=== PATIENT | female | born 1955 | race Caucasian/White ===

== ENCOUNTER 2018-11-18 21:17 | Inpatient (IN) ==
[2018-11-18] MEDS ORDERED: SOLU-MEDROL IV ONE (21:46)
[2018-11-18] MEDS ORDERED: DUONEB (A & A) INH ONE (21:46)
[2018-11-18] MEDS ORDERED: MORPHINE IV ONE (21:46)
[2018-11-18] MEDS ORDERED: ZOFRAN IV ONE (21:46)
[2018-11-18] MEDS ORDERED: ZOVIRAX IV SCH ×2 (22:00→22:13)
[2018-11-18] MEDS ORDERED: NS IV SCH ×2 (22:00→22:13)
[2018-11-18 22:06] LABS: BASO# 0.02 X1000 (0.0-0.2); BASO% 0.2 % (0.0-0.8); EOS# 0.02 X1000 (0.0-0.7); EOS% 0.2 % (0.0-10.0); HEMATOCRIT 41.8 % (37.0-47.0); HEMOGLOBIN 13.7 g/dL (12.0-16.0); IMM GRAN# 0.02 X1000 (0.0-0.04); IMM GRAN% 0.2 % (0.0-0.5); LYMPH# 0.58 X1000 (1.2-3.4); MCHC 32.8 g/dL (33-37); MCV 97.7 FL (81-99); MONO# 0.41 X1000 (0.11-0.59); MONO% 3.5 % (1.7-9.3); MPV 8.8 FL (7.4-10.4); NEUT# 10.54 X1000 (1.4-6.5); NEUT% 90.9 % (42.2-75.2); PLT 269 X1000 (130-400); RBC 4.28 XMIL (4.2-5.4); WBC 11.59 X1000 (4.8-10.8)
[2018-11-18 22:17] LABS: AGAP 13; BUN 12 mg/dL (8-22); CALCIUM 9.2 mg/dL (8.8-10.2); CHLORIDE 92 mmol/L (98-107); COSMO 270; CREATININE 0.5 mg/dL (0.5-0.9); ESTIMATED GFR > 60; GLUCOSE 143 mg/dL (70-104); SODIUM 134 mmol/L (136-145); TCO2 29 mmol/L (25-35)
[2018-11-18 22:19] LABS: BE 7.7 mmoll (-3.0-3.0); BLOOD TYPE ARTERIAL; HCO3-(ACT) 30.7 mmoll (20.0-26.0); METHB 1.6 % (0.0-1.5); O2(CT) 18.1 mL/dL (15.0-23.0); O2HB 90.3 % (95.0-99.0); PCO2(98.6) 49 mmHg (35-45); PO2(98.6) 60 mmHg (60-100); SAMPLE BLOOD; THB 14.3 g/dL (11.5-17.4); pH(98.6) 7.44 (7.35-7.45)
[2018-11-18 22:21] LABS: ALLEN TEST NO; MODALITY CANNULA
[2018-11-18] MEDS ORDERED: ZOVIRAX ONE (22:39)
[2018-11-18] MEDS ORDERED: NS 250 ML ONE (22:41)
--- NOTE | 2018-11-18 22:45 | Diag Imaging Result Doc PS360 ---
CHEST-PORTABLE - 11/18/2018 INDICATION: copd COMPARISON: 06/17/2018 FINDINGS: There is advanced COPD. There is a mild infiltrate in the lingula at the left lung base. No pneumothorax or pleural effusion. Heart size and pulmonary vascularity is normal. IMPRESSION: COPD. Mild infiltrate at the left lung base. Electronically signed by Terrance Finch 11/18/2018 10:42 PM
[2018-11-18 22:53] LABS: INFLUENZA A NEGATIVE (NEGATIVE); INFLUENZA B NEGATIVE (NEGATIVE)
--- NOTE | 2018-11-18 23:04 | PROVIDER DOCUMENTATION ---
This chart was entered by Jasmin Arellano Scribe, acting as scribe for Jey Guerrero MD. HPI-Respiratory General - General Chief Complaint: Shortness of Breath Stated Complaint: SOB Time Seen by Provider: 11/18/18 21:43 Source: patient, family Allergies/Adverse Reactions: Patient Allergies Allergy/AdvReac Type Severity Reaction Status Date / Time amoxicillin [Amoxicillin] Allergy RASH Verified 06/15/18 17:26 Sulfa (Sulfonamide Allergy HIVES Verified 06/15/18 17:26 Antibiotics) Home Medications: Home Medication List Medication Instructions Recorded Confirmed Last Taken Type Albuterol 2.5MG/Ipratrop 0.5MG 2 puff IH DIRECTED 06/15/18 11/18/18 06/15/18 14:30 History [Duoneb (A & A)] Cyclobenzaprine [Flexeril] 5 mg PO TID PRN 06/15/18 11/18/18 Unknown History Fluoxetine HCl 20 mg PO BID 06/15/18 11/18/18 06/15/18 14:30 History Hydrocodone/Acetaminophen 1 tab PO 4XDAY PRN PRN 06/15/18 11/18/18 06/15/18 14: 30 History [Hydrocodone-Acetamin 5-325 mg] Ipratropium/Albuterol Sulfate 1 puff IH DAILY 06/15/18 11/18/18 06/15/18 14:30 History [Combivent Respimat 20-100 Mcg] Mometasone/Formoterol [Dulera 200 2 puff IH BID 06/15/18 11/18/18 06/15/18 14: 30 History Mcg/5 Mcg Inhaler] Clonazepam 1 tab PO BID PRN 06/16/18 11/18/18 Unknown History Levofloxacin [Levaquin] 500 mg PO DAILY 7 Days #7 tablet 06/17/18 11/18/18 Unknown Rx Prednisone See Taper PO DAILY #0 tab 06/17/18 11/18/18 06/15/18 14:30 Rx - History of Present Illness-Resp Nature of Presenting Problem: 63yof with history of COPD c/o cough and sob since this evening. She reports having cough and sob for the past two years, but has worsened this evening. She reports she is on 2L home oxygen. She reports Dr. Alex as her PCP. She denies fever, chills, nausea, vomiting, diarrhea, cp. Quality of Pain: reports: aching Severity in ED: reports: mild Onset/Duration: reports: this evening (worsened), other (two years) Timing: reports: still present, intermittent, constant Cough Quality/Degree: reports: moderate Episode Frequency: other (Hx COPD) Current Respiratory Medication Therapy: Initiated see nurses note Modifying Factors: improves with: nothing Associated Symptoms: reports: cough, shortness of breath. denies: chest pain/ soreness, fever/chills Similar Symptoms Previously?: No Recently seen or treated by another doctor?: No Review of Systems - Adult - REVIEW OF SYSTEMS - ADULT Constitutional: denies: chills, fever Eyes: denies: discharge, dry eyes Ears, Nose, Mouth & Throat: denies: ear discharge, ear pain Cardiovascular: denies: chest pain, palpitations Respiratory: reports: cough, shortness of breath Gastrointestinal: denies: abdominal pain, diarrhea, nausea, vomiting Genitourinary: denies: dysuria, hematuria Musculoskeletal: denies: back pain, muscle aches, muscle weakness Integumentary: reports: no symptoms reported Neurological: denies: dizziness/vertigo, headache/migraines Psychiatric: reports: no symptoms reported Endocrine: reports: no symptoms reported Hematologic/Lymphatic: reports: no symptoms reported Allergic/Immunologic: reports: no symptoms reported All Other Systems: Reviewed and Negative Past History - Adult - PAST MEDICAL HISTORY-ADULT Review of Records: reports: Old Records Reviewed, Nursing Assessment Review, Medications Reviewed Respiratory: reports: COPD Psychiatric: reports: anxiety - PRIOR SURGERIES/PROCEDURES Surgical/Procedure History: reports: hysterectomy - IMMUNIZATION STATUS Childhood Immunizations: See Nurse Assessment Flu Vaccine: See Nurse Assessment - FAMILY HISTORY Family History: reviewed, not pertinent - SOCIAL HISTORY Smoking: other (former, quit 2 years prior) Substance Use: denies Living Situation: family Physical Exam-General - PHYSICAL EXAM-ADULT Initial Vital Signs Reviewed: Yes - CONSTITUTIONAL General Appearance: alert, no apparent distress, thin - EYES Eyes: PERRL/EOMI, pink conjunctivae - NECK Neck: non-tender, supple - RESPIRATORY Respiratory: rales, wheezing (bilaterally), other (tachypneic) - CARDIOVASCULAR Cardiovascular: no JVD, no murmur, tachycardia - GASTROINTESTINAL (ABDOMEN) Abdominal Exam: non tender, soft - MUSCULOSKELETAL Extremity: normal range of motion, non-tender, normal inspection, no pedal edema - SKIN Integumentary: normal color, warm/dry, zoster-like rash (L upper face stops midline, no conjunctivitis) - NEUROLOGIC Neurologic: grossly normal, no motor/sensory deficits - PSYCHIATRIC Psych/Mental Status: normal mood/affect, normal thought content, normal thought process, oriented x 3 Progress - PLAN OF CARE/RESULTS Progress/Plan/Lab Results: Vital Signs - 8 hr 11/18/18 21:27 11/18/18 21:57 11/18/18 22:01 Temperature 98.6 F Pulse Rate 104 H 92 H 104 H Respiratory Rate 26 H 20 25 H Blood Pressure 151/104 120/78 O2 Sat by Pulse Oximetry 88 L 91 L 93 L Laboratory Results - last 24 hr 11/18/18 11/18/18 11/18/18 21:38 21:38 21:38 WBC 11.59 H RBC 4.28 Hgb 13.7 Hct 41.8 MCV 97.7 MCH 32.0 H MCHC 32.8 L RDW Std Deviation 14.0 Plt Count 269 MPV 8.8 Immature Gran % (Auto) 0.2 Neut % (Auto) 90.9 H Lymph % (Auto) 5.0 L Carroll % (Auto) 3.5 Eos % (Auto) 0.2 Baso % (Auto) 0.2 Immature Gran # (Auto) 0.02 Neut # (Auto) 10.54 H Lymph # (Auto) 0.58 L Carroll # (Auto) 0.41 Eos # (Auto) 0.02 Baso # (Auto) 0.02 Specimen Type Sample Site pH pCO2 pO2 HCO3 Base Excess Oxyhemoglobin ABG O2 Sat (Calculated) ABG O2 Saturation ABG Carboxyhemoglobin ABG Methemoglobin Freddie Test A-a O2 Difference Total Hemoglobin Lactate Liter Flow Blood Gas Modality FiO2 % Sodium 134 L Potassium 5.0 Chloride 92 L Carbon Dioxide 29 Anion Gap 13 BUN 12 Creatinine 0.5 Estimated GFR/1.73 m2 > 60 BUN/Creatinine Ratio 24 Glucose 143 H Calculated Osmolality 270 Calcium 9.2 Magnesium 2.0 Troponin T [id number]-Cvxqvuunsrl Pept 177 Influenza A (Rapid) Influenza B (Rapid) 11/18/18 11/18/18 11/18/18 21:38 21:54 22:30 WBC RBC Hgb Hct MCV MCH MCHC RDW Std Deviation Plt Count MPV Immature Gran % (Auto) Neut % (Auto) Lymph % (Auto) Carroll % (Auto) Eos % (Auto) Baso % (Auto) Immature Gran # (Auto) Neut # (Auto) Lymph # (Auto) Carroll # (Auto) Eos # (Auto) Baso # (Auto) Specimen Type ARTERIAL Sample Site L BRACHIAL pH 7.44 pCO2 49 H pO2 60 HCO3 30.7 H Base Excess 7.7 H Oxyhemoglobin 90.3 L ABG O2 Sat (Calculated) 18.1 ABG O2 Saturation 94.0 L ABG Carboxyhemoglobin 2.40 ABG Methemoglobin 1.6 H Freddie Test NO A-a O2 Difference 107.0 Total Hemoglobin 14.3 Lactate 0.80 Liter Flow 3.0 Blood Gas Modality CANNULA FiO2 % 32.0 Sodium Potassium Chloride Carbon Dioxide Anion Gap BUN Creatinine Estimated GFR/1.73 m2 BUN/Creatinine Ratio Glucose Calculated Osmolality Calcium Magnesium Troponin T 0.012 Cpq-B-Eacgrohrpoj Pept Influenza A (Rapid) NEGATIVE Influenza B (Rapid) NEGATIVE Orders Category Date Time Status Saline Loc NOW Care 11/18/18 21:43 Active CHEST-PORTABLE [RAD] Stat Exams 11/18/18 21:45 Completed ABG [RESP] Routine Lab 11/18/18 21:54 Completed BLOOD CULTURE [BLDCUL] Stat Lab 11/18/18 21:44 Ordered BMP [BASIC METABOLIC PANEL] [CHEM] Stat Lab 11/18/18 21:38 Completed CBC WITH ELECTRONIC DIFF [HEME] Stat Lab 11/18/18 21:[address] Stat Lab 11/18/18 22:30 Completed MAGNESIUM [CHEM] Stat Lab 11/18/18 21:38 Completed PRO B-NATRIURETIC PEPTIDE Stat Lab 11/18/18 21:38 Completed TROPONIN T Stat Lab 11/18/18 21:[address] W/POSS RFLX CULT [URINALYSIS] Stat Lab 11/18/18 21:44 Uncollected 0.9% Sodium Chloride Inj [Ns] 250 ml Med 11/18/18 22:41 Discontinued .ROUTE As Directed Acyclovir [Zovirax] Med 11/18/18 22:39 Discontinued 1,000 mg .ROUTE .STK-MED ONE Acyclovir [Zovirax] 0 mg Med 11/18/18 22:00 Discontinued 0.9% Sodium Chloride Inj [Ns] 150 ml IV Q8H Acyclovir [Zovirax] 800 mg Med 11/18/18 22:13 Active 0.9% Sodium Chloride Inj [Ns] 150 ml IV Q8H Albuterol 2.5MG/Ipratrop 0.5MG [Duoneb (A & A)] Med 11/18/18 21:46 Discontinued 3 ml INH NOW ONE Methylprednisolone Sod Succ [Solu-Medrol] Med 11/18/18 21:46 Discontinued 80 mg IV NOW ONE Morphine Med 11/18/18 21:46 Discontinued 2 mg IV NOW ONE Ondansetron [Zofran] Med 11/18/18 21:46 Discontinued 4 mg IV NOW ONE Aerosol Treatments Routine Oth 11/18/18 21:48 Completed Aerosol Treatments Stat Oth 11/18/18 21:48 Completed O2 Per Protocol Stat Oth 11/18/18 21:43 Active Pulse Oximetry Stat Oth 11/18/18 21:43 Active EKG [EKG] Stat Ther 11/18/18 21:44 Ordered Result Diagrams: 11/18/18 21:38 11/18/18 21:38 - EKG 1 Time of EKG reading by physician:: 21:26 EKG Read and Signed by:: Jey Guerrero EKG Interpretation (*Must complete 3 of following elements*): Abnormal Rate: 103 Rhythm: Sinus tachycardia ST Wave: non-specific ST changes - XRAY 1 XRAY Study: Chest (COPD, AND L BASILAR INFILTRATE), other - CONSULTS/PCP/HOSPITALIST Notification #1 *Consult/PCP/Hospitalist*: DR ANDREW Consult Disposition: Admit Departure - Departure Date of Disposition Decision: 11/18/18 Time of Disposition Decision: 23:03 DIAGNOSIS: Pneumonia, COPD exacerbation, Zoster blepharitis Disposition: ADMITTED INPATIENT 09 Certified Medical Emergency: Emergent Condition: Stable Additional Freetext Instructions: ED Follow Up Instructions: You have been treated by a care provider in the Emergency Department. These instructions are being provided to you so you can have an understanding of how to care for yourself upon discharge. Upon discharge from the Emergency Department, you are responsible for making arrangements for follow-up care by a physician of your choice. Take all prescribed medications as directed. Return to the Emergency Department immediately for any new or worsening symptoms. You may call the Physician Referral phone number at [phone] to obtain a list of Physicians who are taking new patients. Referrals and Follow-Ups: Jaswinder Alex MD [Primary Care Provider] - - Critical Care Note This patient required my direct & personal management of CC.: No Attestation - Physician/ ARABELLA Attestation Patient care was provided by Advanced Practice Provider:: No The physician spent face to face time with patient:: Yes Advanced Practice Provider documentation review:: Supervising physician onsite and consulted in the evaluation and care of this patient. The physician did have a face to face encounter with the patient. This chart was documented by the indicated scribe, (Jasmin Arellano, Torito) and accurately reflects the services I performed and decisions made by me, Jey Guerrero MD, as attested by the provider's signature.
--- NOTE | 2018-11-19 00:40 | EKG Report ---
Test Performed on : 11/18/2018 9:25:28 PM Test Reason : SOB Blood Pressure : / mmHG Vent. Rate : 103 BPM Atrial Rate : 103 BPM P-R Int : 118 ms QRS Dur : 064 ms QT Int : 304 ms P-R-T Axes : 089 081 068 degrees QTc Int : 398 ms Sinus tachycardia. Nonspecific ST abnormality Abnormal ECG When compared with ECG of 15-JUN-2018 17:42, (Unconfirmed) Sinus rhythm. has replaced Junctional rhythm. Nonspecific T wave abnormality has replaced inverted T waves in Anterior leads Unconfirmed Result
[2018-11-19] MEDS ORDERED: NS 1,000 ML IV ONE (01:33)
[2018-11-19] MEDS ORDERED: PNEUMOVAX 23 IM ONE (01:53)
[2018-11-19 14:27] LABS: BILIRUBIN URINE NEGATIVE (NEGATIVE); BLOOD URINE NEGATIVE (NEGATIVE); CLARITY CLEAR (CLEAR); COLOR YELLOW; GLUCOSE URINE NEGATIVE (NEGATIVE); KETONE URINE TRACE mg/dL (NEGATIVE); LEUKOCYTES URINE NEGATIVE (NEGATIVE); NITRITE URINE NEGATIVE (NEGATIVE); PH URINE 6.5; PROTEIN URINE TRACE mg/dL (NEGATIVE); SP GRAVITY URINE 1.015; UROBILINOGEN URINE 4 mg/dL
[2018-11-19 14:28] LABS: URINE BACTERIA 3+ /HFP; URINE CAST NONE SEEN /LPF; URINE CRYSTAL NONE SEEN /HPF; URINE EPITHELIAL CELLS <10 /HPF (<10); URINE RBC <10 /HPF (<10); URINE SOURCE CLEAN CATCH; URINE WBC <10 /HPF (<10); URINE YEAST PRESENT /HPF
[2018-11-19] MEDS ORDERED: FLEXERIL PO PRN (15:04)
[2018-11-19] MEDS ORDERED: DUONEB (A & A) INH SCH (15:15)
[2018-11-19] MEDS ORDERED: DUONEB (A & A) INH PRN (15:15)
[2018-11-19] MEDS: PREDNISONE PO SCH (15:35)
[2018-11-19] MEDS: NORCO-5 PO PRN (15:49)
[2018-11-19] MEDS: KLONOPIN PO PRN (15:51)
[2018-11-19] MEDS ORDERED: DUONEB (A & A) ONE (16:41)
[2018-11-19] MEDS: DUONEB (A & A) INH SCH ×2 (16:44→20:19)
[2018-11-19] MEDS: PROZAC PO SCH ×2 (19:51→21:34)
[2018-11-19] MEDS: DULERA 200 MCG/5 MCG INHALER IH SCH (23:46)
[2018-11-20] MEDS: NORCO-5 PO PRN ×4 (00:04→22:55)
[2018-11-20] MEDS: DUONEB (A & A) INH SCH ×4 (03:07→20:16)
[2018-11-20] MEDS ORDERED: DUONEB (A & A) INH PRN (07:30)
[2018-11-20] MEDS: DULERA 200 MCG/5 MCG INHALER IH SCH ×2 (09:00→20:16)
[2018-11-20] MEDS: PROZAC PO SCH ×2 (09:10→21:32)
[2018-11-20] MEDS: PREDNISONE PO SCH (09:10)
--- NOTE | 2018-11-20 15:14 | HISTORY AND PHYSICAL ---
HISTORY OF PRESENT ILLNESS: A patient of [facility] with COPD. The patient presented with shortness of breath. She has a history of COPD, developed a cough, shortness of breath became progressively worse the evening prior to presentation. She had some chronic respiratory cough and shortness of breath over the years. She is on 2 liters at home. She denies any fever, chills, nausea, vomiting, diarrhea, chest pain, only that she is coughing and more short of breath, aching mildly that began the evening prior to presentation. She has frequent episodes of COPD with exacerbations. She is very thin and frail, pretty much up to date on her immunizations. She recently developed shingles on the left side of her face and scalp, which was very impressive and has been on acyclovir for a period of time here. REVIEW OF SYSTEMS: Constitutional: No increased weight loss, chills, or fever. No visual changes or acuity changes. No discharge. Ears, nose, and throat: No sinusitis, otitis, or pharyngitis. Cardiovascular: She denies chest pain, palpitations. No edema. Respiratory: Cough, short of breath, occasionally produces some phlegm. Gastrointestinal: No abdominal pain, diarrhea, nausea, or vomiting. Genitourinary: Denies dysuria or hematuria. Musculoskeletal: Denies back pain, muscle aches, muscle weakness. Skin; No symptoms reported. Neurologic: No focal neurologic deficits. No TIAs, no stroke like symptoms. Endo: No thyroid disorder. No diabetes. Hematologic/lymphatic: No clotting or bleeding disorders. Allergy/immunologic: No hay fever or asthma. PAST MEDICAL HISTORY: Pertinent only for COPD and anxiety. PAST SURGICAL HISTORY: She is status post hysterectomy. SOCIAL HISTORY: She quit smoking approximately 2 years prior to her presentation. She denies any substance abuse. She lives with her . PHYSICAL EXAMINATION: HEENT: Head: Normocephalic, temporal wasting. She is pale, frail. Eyes: PERRL. EOMs intact. SC pale. NECK: Supple without any thyromegaly. Midline trachea. LUNGS: Breath sounds: Diminished breath sounds, hyperexpanded lungs down to her belt line, increased AP diameter and respiratory rate. CARDIOVASCULAR: No murmurs, gallops, clicks, or rubs. ABDOMEN: Soft. No hepatosplenomegaly. No CVA tenderness. EXTREMITIES: Negative for clubbing, cyanosis. NEUROLOGIC: Intact. SKIN: Clear other than the left upper face, forehead, and cheek were covered with a zoster rash. PSYCHIATRIC: Exam was normal. VITAL SIGNS: Temperature on admission 98.6. Pulse 104. Respiratory rate 26. BP 151/104. O2 sat 88. Her initial white count was 12,000 roughly, hematocrit 42, platelet count 269, she had relative left shift 91% polys. Sodium 134, potassium 5, chloride 92, CO2 29, BUN 12, creatinine 0.5, GFR greater than 60, glucose 143, calcium 9.2, magnesium 2, ProBNP 177. Blood gas: pH 7.44, CO2 49, PO2 60, these were drawn on 3 liters per cannula, lactic acid was not elevated, it was 0.8. Troponin 0.12. Flu A and B were negative. In the ER she had some acyclovir, albuterol and Atrovent, methylprednisolone 80, morphine 2, and Zofran 4. ADMITTING DIAGNOSES: 1. She was admitted for exacerbation of chronic bronchitis. EKG nonspecific sinus tach. Chest x- ray: Chronic obstructive pulmonary disease with questionable basilar infiltrate. She was admitted to the floor with possible pneumonia, chronic obstructive pulmonary disease exacerbation. 2. Herpes zoster on the left face. cc: Jaswinder Alex MD
[2018-11-20] MEDS ORDERED: LEVAQUIN 750 MG/D5W 750 MG/150 ML IVPB IV ONE (16:00)
[2018-11-20 16:10] LABS: BASO# 0.01 X1000 (0.0-0.2); BASO% 0.1 % (0.0-0.8); HEMATOCRIT 37.5 % (37.0-47.0); HEMOGLOBIN 12.1 g/dL (12.0-16.0); IMM GRAN# 0.03 X1000 (0.0-0.04); IMM GRAN% 0.3 % (0.0-0.5); LYMPH# 0.52 X1000 (1.2-3.4); LYMPH% 4.4 % (20.5-51.1); MCH 31.8 PG (27-31); MCHC 32.3 g/dL (33-37); MCV 98.7 FL (81-99); MONO# 0.48 X1000 (0.11-0.59); MONO% 4.1 % (1.7-9.3); MPV 8.6 FL (7.4-10.4); NEUT# 10.69 X1000 (1.4-6.5); NEUT% 91.1 % (42.2-75.2); PLT 219 X1000 (130-400); WBC 11.73 X1000 (4.8-10.8)
--- NOTE | 2018-11-20 16:40 | Diag Imaging Result Doc PS360 ---
EXAM: CHEST-2 VIEWS - 11/20/2018 HISTORY: cough TECHNIQUE: Chest two views COMPARISON: Portable exam of 06/18/2018 FINDINGS: Heart size is normal. There are COPD changes with hyperexpanded lungs. There is infiltrate at left lingula similar to prior. There is infiltrate at the posterior medial inferior right lower lobe, which is more conspicuous compared to prior. There is no substantial pleural effusion or pneumothorax identified. There are subacute to chronic fracture deformities of posterior lateral left mid ribs noted adjacent mild pleural thickening. IMPRESSION: COPD changes with hyperexpanded lungs. Infiltrate at left lingula similar to prior. Infiltrate at right lower lobe which is more conspicuous compared to prior. Bronchopneumonia cannot be excluded. Electronically signed by Scooter Pérez 11/20/2018 4:38 PM
[2018-11-20 16:51] LABS: BANDS 2 % (0-1); HYPOCHROM 1+; LYMPHS 6 % (21-51); MONO 1 % (1-9); SEGS 91 % (42-75)
[2018-11-20] MEDS: KLONOPIN PO PRN (21:32)
[2018-11-21] MEDS: DUONEB (A & A) INH SCH (08:01)
[2018-11-21] MEDS: DULERA 200 MCG/5 MCG INHALER IH SCH (08:04)
[2018-11-21] MEDS: PREDNISONE PO SCH (08:33)
[2018-11-21] MEDS: KLONOPIN PO PRN (08:33)
[2018-11-21] MEDS: PROZAC PO SCH (08:33)
[2018-11-21] MEDS: NORCO-5 PO PRN (08:33)
[2018-11-21 11:30] VITALS: BP 129/61
[2018-11-21] MEDS ORDERED: LEVAQUIN 750 MG/D5W 750 MG/150 ML IVPB IV SCH (16:00)
--- NOTE | 2018-12-07 13:52 | DISCHARGE SUMMARY ---
ADMISSION DATE: 11/18/2018 DISCHARGE DATE: 11/21/2018 HISTORY OF PRESENT ILLNESS: This is a 63 year old with COPD who was admitted to the hospital on 11/18/2018 for shortness of breath superimposed on her end stage lung disease that is home O2 dependent. HOSPITAL COURSE: During this hospital stay, she had 2 negative blood cultures and negative urine culture. Her CBC showed white count is 11,730 the last white count that she had. Hematocrit was 37.5, platelet count was 219. She had a left shift with 91% polys. Her blood gases showed pH was 7.44, pCO2 was 49 in spite of a rapid rate, O2 was 60 with 32% O2 supplementation. Chemistry showed sodium 134, potassium 5, chloride 92, CO2 was 29, BUN was 12, creatinine 0.5, glucose 143. Troponin was negative. ProBNP was 177. Magnesium was 2, calcium was 9.2, normal. Urinalysis showed 1.015 specific gravity, otherwise negative, 3+ bacteria. Some yeast was present in her urine. Serologies for flu were negative during this hospital stay. She had low grade fever, at best 99, otherwise negative. She was placed on pulmonary toilet, given antibiotics, supplemental oxygen. Her imaging reports included initial chest x-ray that showed advanced COPD. There is mild infiltrate in the lingula at the left lung base. No pneumothorax or pleural effusion. Heart size was normal. Followup chest x-ray on 11/20/2018 shows heart size was normal. There were COPD changes with hyperexpanded lungs. There is an infiltrate in the left lingula similar to prior. There is an infiltrate at the posterior medial, inferior right lower lobe which is more conspicuous than on prior exam. There is no substantial pleural effusion or pneumothorax identified. There are subacute or chronic fracture deformities of the lateral left mid ribs which is a fact. Her medicines on admission included Levaquin daily, nebulizer treatments, some steroid treatment. She coincidentally has a very prominent left facial herpes zoster that we are treating with acyclovir and maintaining her on some clonazepam for anxiety and hydrocodone that she uses on a regular basis plus her Prozac. She was slow to respond. She was getting frustrated with the nursing staff and the staffing manager not cleaning her room and not answering her calls, and so she decided she would rather just go home and treat herself with levofloxacin at home along with her acyclovir and continue her prednisone 10 mg daily. We will follow her up in the office with a chest x-ray. She was discharged with severe COPD and superimposed pneumonia, chronic anxiety and V1 distribution of herpes zoster. cc: Jaswinder Alex MD
== END 2018-11-21 14:04 | disposition home or self-care (01) | DRG 190 ==
LOC: P.ED 21:17 → P.MEDSURG 21:18
PROVIDERS: ADMIT Internal Medicine; ATTEND Internal Medicine
CPT/HCPCS: 71010; 71020; 71045; 71046; 80048; 81001; 82805; 83735; 83880; 84484; 85025; 87040; 87088; 87275; 87276; 87804; 90732; 93005; 94640; 94761; 96365; 96375; 99285; A9270; J0133; J1956; J2270; J2405; J2930; J7030; J7050; J7506; J7512

== ENCOUNTER 2019-01-23 15:40 | Inpatient (IN) ==
[2019-01-23] MEDS ORDERED: ROCEPHIN 1 GM in NS 50 ML IV ONE ×2 (15:55→17:59)
[2019-01-23] MEDS ORDERED: DUONEB (A & A) INH ONE (15:55)
[2019-01-23] MEDS ORDERED: SOLU-MEDROL IV ONE (15:55)
[2019-01-23 16:38] LABS: INFLUENZA A NEGATIVE (NEGATIVE); INFLUENZA B NEGATIVE (NEGATIVE)
[2019-01-23 16:43] LABS: ESTIMATED GFR > 60
--- NOTE | 2019-01-23 17:09 | Diag Imaging Result Doc PS360 ---
EXAM: CHEST-2 VIEWS HISTORY: sob/copd TECHNIQUE: PA and Lateral chest x-ray COMPARISON: 11/20/2018 FINDINGS: The cardiomediastinal silhouette is within normal limits. The pulmonary vasculature is not congested. There is marked pulmonary emphysema. Increased interstitial markings are again noted at both lung bases but slightly increased when compared with prior studies. This may indicate mild superimposed interstitial infiltrate or edema. No effusion or pneumothorax is appreciated. There are old healed left lateral rib fractures. IMPRESSION: Baseline pulmonary emphysema and fibrosis. Slight increase in basilar interstitial prominence may indicate mild superimposed interstitial infiltrate or edema . Electronically signed by Shiloh Jackson 01/23/2019 5:06 PM
[2019-01-23 17:35] LABS: AGAP 16; ALBUMIN 3.8 g/dL (3.5-5.0); ALKALINE PHOSPHATASE 82 U/L (32-104); BUN 16 mg/dL (8-22); CALCIUM 8.4 mg/dL (8.8-10.2); CHLORIDE 74 mmol/L (98-107); COSMO 227; CREATININE 0.5 mg/dL (0.5-0.9); GLUCOSE 103 mg/dL (70-104); GOT 13 U/L (10-30); GPT 11 U/L (10-36); POTASSIUM 4.2 mmol/L (3.5-5.1); SODIUM 111 mmol/L (136-145); TCO2 22 mmol/L (25-35); TOTAL PROTEIN 6.5 g/dL (6.3-8.3)
[2019-01-23] MEDS ORDERED: NS 1,000 ML IV ONE ×2 (17:40→21:23)
[2019-01-23 17:43] LABS: BASO# 0.02 X1000 (0.0-0.2); BASO% 0.2 % (0.0-0.8); EOS# 0.05 X1000 (0.0-0.7); EOS% 0.5 % (0.0-10.0); HEMATOCRIT 41.2 % (37.0-47.0); HEMOGLOBIN 15.2 g/dL (12.0-16.0); IMM GRAN# 0.03 X1000 (0.0-0.04); IMM GRAN% 0.3 % (0.0-0.5); LYMPH# 0.78 X1000 (1.2-3.4); LYMPH% 8.5 % (20.5-51.1); MCH 32.4 PG (27-31); MCHC 36.9 g/dL (33-37); MCV 87.8 FL (81-99); MONO# 0.84 X1000 (0.11-0.59); MONO% 9.1 % (1.7-9.3); MPV 8.7 FL (7.4-10.4); NEUT# 7.48 X1000 (1.4-6.5); NEUT% 81.4 % (42.2-75.2); PLT 302 X1000 (130-400); RBC 4.69 XMIL (4.2-5.4); RDW 13.1 % (11.5-14.5)
[2019-01-23 17:48] LABS: HYPOCHROM 1+; LYMPHS 8 % (21-51); MONO 1 % (1-9); SEGS 91 % (42-75)
--- NOTE | 2019-01-23 18:08 | PROVIDER DOCUMENTATION ---
This chart was entered by Shelley Quarles Scribe, acting as scribe for Jey Guerrero MD. HPI-Respiratory General - General Chief Complaint: Shortness of Breath Stated Complaint: SOB Time Seen by Provider: 01/23/19 15:42 Source: patient Allergies/Adverse Reactions: Patient Allergies Allergy/AdvReac Type Severity Reaction Status Date / Time amoxicillin [Amoxicillin] Allergy RASH Verified 06/15/18 17:26 Sulfa (Sulfonamide Allergy HIVES Verified 06/15/18 17:26 Antibiotics) Home Medications: Home Medication List Medication Instructions Recorded Confirmed Last Taken Type Cyclobenzaprine [Flexeril] 5 mg PO TID PRN 06/15/18 11/18/18 Unknown History Fluoxetine HCl 20 mg PO BID 06/15/18 11/18/18 06/15/18 14:30 History Hydrocodone/Acetaminophen 1 tab PO 4XDAY PRN PRN 06/15/18 11/18/18 06/15/18 14: 30 History [Hydrocodone-Acetamin 5-325 mg] Mometasone/Formoterol [Dulera 200 2 puff IH BID 06/15/18 11/18/18 06/15/18 14: 30 History Mcg/5 Mcg Inhaler] Clonazepam 1 tab PO BID PRN 06/16/18 11/18/18 Unknown History Levofloxacin [Levaquin] 500 mg PO DAILY 7 Days #7 tablet 06/17/18 11/18/18 Unknown Rx - History of Present Illness-Resp Nature of Presenting Problem: 63 yof presents to ed w/co sob for 2 days , productive cough w/clear phlegm for 2-3 days. pt has hx of copd, and quit smoking 3 years ago. pt has no hx of HI, Dm or thyroid disorder. pt was seen in ed around [place] last year. pt's PCP is Dr. Hernández. pt also states she is not sob all the time, only sometimes. Review of Systems - Adult - REVIEW OF SYSTEMS - ADULT Constitutional: reports: no symptoms reported Eyes: reports: no symptoms reported Ears, Nose, Mouth & Throat: reports: no symptoms reported Cardiovascular: reports: see HPI. denies: chest pain Respiratory: reports: see HPI, cough, excessive sputum production, shortness of breath. denies: hemoptysis, pleurisy, wheezing Gastrointestinal: reports: no symptoms reported Genitourinary: reports: no symptoms reported Musculoskeletal: reports: no symptoms reported Integumentary: reports: no symptoms reported Neurological: reports: no symptoms reported Psychiatric: reports: no symptoms reported Endocrine: reports: no symptoms reported Hematologic/Lymphatic: reports: no symptoms reported Allergic/Immunologic: reports: no symptoms reported All Other Systems: Reviewed and Negative Past History - Adult - PAST MEDICAL HISTORY-ADULT Review of Records: reports: Old Records Reviewed, Nursing Assessment Review, Medications Reviewed, Social history reviewed & non-contributory. Major Childhood Illnesses: reports: history unknown Cardiovascular: reports: CHF Respiratory: reports: COPD Gastrointestinal: reports: denies history Obstetrical/Gynecological: reports: denies history Genitourinary: reports: denies history Musculoskeletal: reports: denies history Neurological: reports: denies history Psychiatric: reports: anxiety Endocrine/Immune: reports: denies history Other Conditions: reports: denies history - PRIOR SURGERIES/PROCEDURES Surgical/Procedure History: reports: hysterectomy, other (oral) - IMMUNIZATION STATUS Childhood Immunizations: See Nurse Assessment Flu Vaccine: See Nurse Assessment - FAMILY HISTORY Family History: reviewed, not pertinent - SOCIAL HISTORY Smoking: quit greater than 1 year (3 years ago, former) Substance Use: none/never Physical Exam-General - PHYSICAL EXAM-ADULT Initial Vital Signs Reviewed: Yes - CONSTITUTIONAL General Appearance: appears well, alert, no apparent distress - EYES Eyes: PERRL/EOMI - HEAD, EARS, NOSE, MOUTH & THROAT HENMT: normocephalic/atraumatic, moist mucous membranes, normal ENT inspection - NECK Neck: non-tender, full range of motion, supple - RESPIRATORY Respiratory: chest non-tender, normal breath sounds, crackles, rales. negative : stridor, wheezing, dull on percussion - CARDIOVASCULAR Cardiovascular: normal peripheral pulses, tachycardia (minimal). 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, grossly normal, no motor/sensory deficits - PSYCHIATRIC Psych/Mental Status: normal mood/affect, normal thought content, normal thought process, oriented x 3 Progress - PLAN OF CARE/RESULTS Progress/Plan/Lab Results: Vital Signs - 8 hr 01/23/19 15:35 01/23/19 16:23 01/23/19 17:20 Temperature 98.4 F Pulse Rate 87 83 86 Respiratory Rate 22 19 20 Blood Pressure 113/60 107/51 O2 Sat by Pulse Oximetry 96 95 94 L Laboratory Results - last 24 hr 01/23/19 01/23/19 01/23/19 15:53 16:00 17:00 WBC RBC Hgb Hct MCV MCH MCHC RDW Std Deviation Plt Count MPV Immature Gran % (Auto) Neut % (Auto) Lymph % (Auto) [place] % (Auto) Eos % (Auto) Baso % (Auto) Immature Gran # (Auto) Neut # (Auto) Lymph # (Auto) [place] # (Auto) Eos # (Auto) Baso # (Auto) Segmented Neutrophils Lymphocytes Monocytes Hypochromia Poikilocytosis Sodium Potassium Chloride Carbon Dioxide Anion Gap BUN Creatinine Estimated GFR/1.73 m2 BUN/Creatinine Ratio Glucose Calculated Osmolality Calcium Total Bilirubin AST ALT Alkaline Phosphatase Creatine Kinase 134 Troponin T 0.057 Total Protein Albumin Globulin Albumin/Globulin Ratio Plasma Lactate Influenza A (Rapid) NEGATIVE Influenza B (Rapid) NEGATIVE 01/23/19 01/23/19 01/23/19 17:00 17:00 17:00 WBC 9.20 RBC 4.69 Hgb 15.2 Hct 41.2 MCV 87.8 MCH 32.4 H MCHC 36.9 RDW Std Deviation 13.1 Plt Count 302 MPV 8.7 Immature Gran % (Auto) 0.3 Neut % (Auto) 81.4 H Lymph % (Auto) 8.5 L [place] % (Auto) 9.1 Eos % (Auto) 0.5 Baso % (Auto) 0.2 Immature Gran # (Auto) 0.03 Neut # (Auto) 7.48 H Lymph # (Auto) 0.78 L [place] # (Auto) 0.84 H Eos # (Auto) 0.05 Baso # (Auto) 0.02 Segmented Neutrophils 91 H Lymphocytes 8 L Monocytes 1 Hypochromia 1+ Poikilocytosis Sodium 111 L* Potassium 4.2 Chloride 74 L Carbon Dioxide 22 L Anion Gap 16 BUN 16 Creatinine 0.5 Estimated GFR/1.73 m2 > 60 BUN/Creatinine Ratio 32 Glucose 103 Calculated Osmolality 227 Calcium 8.4 L Total Bilirubin 0.90 AST 13 ALT 11 Alkaline Phosphatase 82 Creatine Kinase Troponin T Total Protein 6.5 Albumin 3.8 Globulin 3.0 Albumin/Globulin Ratio 1.0 Plasma Lactate 1.1 Influenza A (Rapid) Influenza B (Rapid) Orders Category Date Time Status CHEST-2 VIEWS [RAD] Stat Exams 01/23/19 15:54 Completed BLOOD CULTURE [BLDCUL] Stat Lab 01/23/19 16:02 Ordered CBC WITH DIFF [HEME] Stat Lab 01/23/19 17:00 Completed CK PROFILE [SP CHEM] Stat Lab 01/23/19 17:00 Completed CK PROFILE [SP CHEM] Stat Lab 01/23/19 17:53 Ordered COMPREHENSIVE METABOLIC PANEL [CHEM] Stat Lab 01/23/19 17:[address] Stat Lab 01/23/19 16:00 Completed LACTATE, PLASMA [CHEM] Stat Lab 01/23/19 17:00 Completed TROPONIN T Stat Lab 01/23/19 15:53 Completed TROPONIN T Stat Lab 01/23/19 17:53 Ordered 0.9% Sodium Chloride Inj [Ns] 1,000 ml Med 01/23/19 17:40 Active IV 200 mls/hr Albuterol 2.5MG/Ipratrop 0.5MG [Duoneb (A & A)] Med 01/23/19 15:55 Discontinued 3 ml INH NOW ONE CefTRIAXONE [Rocephin] 1 gm Med 01/23/19 15:55 Discontinued 0.9% Sodium Chloride Inj [Ns] 50 ml IV NOW Methylprednisolone Sod Succ [Solu-Medrol] Med 01/23/19 15:55 Discontinued 125 mg IV NOW ONE Rocephin 1 gm/Ns IV Now Med 01/23/19 17:59 Ordered CefTRIAXONE [Rocephin] 1 gm 0.9% Sodium Chloride Inj [Ns] 50 ml IV NOW Aerosol Treatments Routine Oth 01/23/19 15:56 Completed Aerosol Treatments Stat Oth 01/23/19 15:56 Completed EKG [EKG] Stat Ther 01/23/19 15:55 Ordered EKG [EKG] Stat Ther 01/23/19 17:53 Ordered Result Diagrams: 01/23/19 17:00 01/23/19 17:00 - REASSESSMENT Reassessment #1 Time Reassessed: 17:32 Status: improving (BREATHING COMFORTABLY W/O INCREASED WOB ON 2 LITER O2, TELLS ME PT W RECENT FACIAL SHINGLES, STARTED CARBAMAZIPINE 200mg on MON AND W. INCREASED SEDATION , SAT.) - EKG 1 Time of EKG reading by physician:: 15:47 EKG Read and Signed by:: Jey Guerrero EKG Interpretation (*Must complete 3 of following elements*): Abnormal Rate: 87 Rhythm: NSR [place]: normal MT Interval: normal ST Wave: non-specific ST changes (nonspecific st abnormality) - XRAY 1 XRAY: Bilateral (EXAM: CHEST-2 VIEWS HISTORY: sob/copd TECHNIQUE: PA and Lateral chest x-ray COMPARISON: 11/20/2018 FINDINGS: The cardiomediastinal silhouette is within normal limits. The pulmonary vasculature is not congested. There is marked pulmonary emphysema. Increased interstitial markings are again noted at both lung bases but slightly increased when compared with prior studies. This may indicate mild superimposed interstitial infiltrate or edema. No effusion or pneumothorax is appreciated. There are old healed left lateral rib fractures. IMPRESSION: Baseline pulmonary emphysema and fibrosis. Slight increase in basilar interstitial prominence may indicate mild superimposed interstitial infiltrate or edema . Electronically signed by Shiloh Jackson 2018 5:06 PM) XRAY Study: Chest Impression: Abnormal - CONSULTS/PCP/HOSPITALIST Notification #1 *Consult/PCP/Hospitalist*: DR HERNÁNDEZ Time Discussed: 18:04 Consult Disposition: Admit Departure - Departure Date of Disposition Decision: 01/23/19 Time of Disposition Decision: 18:04 DIAGNOSIS: COPD exacerbation, Elevated troponin, Hyponatremia, Post-herpetic trigeminal neuralgia Disposition: ADMITTED INPATIENT 09 Certified Medical Emergency: Emergent Condition: Stable Referrals and Follow-Ups: Jaswinder Hernández MD [Primary Care Provider] - - Critical Care Note This patient required my direct & personal management of CC.: No Attestation - Physician/ ARABELLA Attestation Patient care was provided by Advanced Practice Provider:: No The physician spent face to face time with patient:: Yes Advanced Practice Provider documentation review:: Supervising physician onsite and consulted in the evaluation and care of this patient. The physician did have a face to face encounter with the patient. This chart was documented by the indicated scribe, (Shelley Quarles, Scribe) and accurately reflects the services I performed and decisions made by me, Jey Guerrero MD, as attested by the provider's signature.
[2019-01-23] MEDS ORDERED: KLONOPIN PO ONE (18:34)
--- NOTE | 2019-01-23 18:43 | ED EKG INTERP ---
This chart was entered by Shelley Quarles Scribe, acting as scribe for Jey Guerrero MD. EKG Interpretation - EKG Time of EKG reading by physician:: 18:08 EKG Read and Signed by:: Jey Guerrero EKG Interpretation (*Must complete 3 of following elements*): Abnormal Rate: 85 Rhythm: NSR [place]: right (rightward axis) QRS: other (prolonged QT) ST Wave: non-specific ST changes (nonspecific st abnormality) Attestation - Physician/ ARABELLA Attestation Patient care was provided by Advanced Practice Provider:: No The physician spent face to face time with patient:: Yes Advanced Practice Provider documentation review:: Supervising physician onsite and consulted in the evaluation and care of this patient. The physician did have a face to face encounter with the patient. This chart was documented by the indicated scribe, (Shelley Quarles Scribe) and accurately reflects the services I performed and decisions made by me, Jey Guerrero MD, as attested by the provider's signature.
[2019-01-23] MEDS ORDERED: ZOFRAN IV PRN (21:23)
[2019-01-23] MEDS ORDERED: TYLENOL PO PRN (21:23)
--- NOTE | 2019-01-24 07:56 | PROGRESS NOTE ---
DATE: 01/24/2019 Clinic patient of mine whom I follow primarily for COPD, O2 dependent, emphysematous type, who presented to the emergency room complaining of shortness of breath for the past 2 days. She has had a productive cough with clear phlegm for 2-3 days. She has a background history of COPD. She quit smoking 3 years prior. Patient has no history of an CO or thyroid disease. Was seen in the ER around [place] of last year. She was evaluated for shortness of breath in the emergency room. When she arrived, her temperature was 98.4 degrees, pulse was 87, respiratory rate 22, BP 113/60, O2 sat 96%. She had a CK of 134, troponin of 0.057. We are going to repeat that this morning. Her flu swabs were negative. White count was 9,200, hematocrit 41.2, platelet count was 302,000. She had a left shift for 81.4% polys. Her sodium was 111, potassium 4.2, chloride 74 , CO2 22, BUN 16, creatinine 0.5. GFR greater than 60. BUN/creatinine ratio was 32:1. Glucose was 103. Calcium 8.4. Total bilirubin 0.9. AST 13, ALT 11, alkaline phosphatase 82. Total protein 6.5 , albumin 3.8, globulin 3.0. Plasma lactate 1.1. She was cultured. Treated with Albuterol ipratropium. Given some saline supplementation. Placed on Rocephin, 1 dose of [solumedrol]. She had an EKG, normal sinus rhythm, 87 heart rate. IN intervals were normal, nonspecific ST-T segment changes. Her chest x-ray showed cardiomediastinal silhouette was within normal limits, pulmonary vascular was not congested. There was marked pulmonary emphysema, increased interstitial markings again noted in both lung bases but slightly increased when compared to the prior study. This may indicate mild superimposed interstitial infiltrate or edema. No effusions or pneumonia were appreciated. No pneumothorax. There is an old healed left rib fracture. So she was admitted with COPD, elevated troponin, hypernatremia, postherpetic trigeminal neuralgia. Her exam today shows that she has no edema in her legs. Belly is soft. Lungs are relatively clear, just diminished breath sounds throughout, increased AP diameter. ADMITTING DIAGNOSES: 1. COPD exacerbation. 2. Hyponatremia. 3. Postherpetic neuralgia. MEDICATIONS: 1. Clonazepam. 2. Cyclobenzaprine. 3. Fluoxetine. 4. Hydrocodone. 5. Levofloxacin that she is taking. I am not sure exactly when that was. 6. Dulera. cc: Jaswinder Alex MD MTDD
[2019-01-24 08:45] LABS: AGAP 14; ALBUMIN 3.3 g/dL (3.5-5.0); ALKALINE PHOSPHATASE 65 U/L (32-104); BUN 14 mg/dL (8-22); CALCIUM 7.8 mg/dL (8.8-10.2); CHLORIDE 87 mmol/L (98-107); CK PROFILE 125 U/L (24-173); COSMO 244; CREATININE 0.5 mg/dL (0.5-0.9); ESTIMATED GFR > 60; GLUCOSE 85 mg/dL (70-104); GOT 9 U/L (10-30); GPT 10 U/L (10-36); HEMATOCRIT 33.7 % (37.0-47.0); HEMOGLOBIN 12.3 g/dL (12.0-16.0); IMM GRAN# 0.01 X1000 (0.0-0.04); IMM GRAN% 0.1 % (0.0-0.5); LYMPH# 0.53 X1000 (1.2-3.4); LYMPH% 7.8 % (20.5-51.1); MCH 32.2 PG (27-31); MCHC 36.5 g/dL (33-37); MCV 88.2 FL (81-99); MONO# 0.61 X1000 (0.11-0.59); NEUT# 5.61 X1000 (1.4-6.5); NEUT% 83.1 % (42.2-75.2); PLT 277 X1000 (130-400); POTASSIUM 4.2 mmol/L (3.5-5.1); RBC 3.82 XMIL (4.2-5.4); RDW 12.8 % (11.5-14.5); SODIUM 121 mmol/L (136-145); TCO2 20 mmol/L (25-35); TOTAL PROTEIN 5.5 g/dL (6.3-8.3); WBC 6.76 X1000 (4.8-10.8)
[2019-01-24] MEDS ORDERED: KLONOPIN PO PRN (11:15)
[2019-01-24] MEDS: PROZAC PO SCH ×2 (11:29→20:02)
[2019-01-24] MEDS: NS 1,000 ML IV SCH ×2 (11:30→20:02)
[2019-01-24] MEDS: NORCO-5 PO PRN ×2 (13:41→20:02)
[2019-01-24] MEDS: DUONEB (A & A) INH SCH ×3 (13:42→21:16)
[2019-01-24] MEDS: DULERA 200 MCG/5 MCG INHALER IH SCH (21:16)
[2019-01-25] MEDS: DUONEB (A & A) INH SCH ×2 (03:37→10:42)
[2019-01-25] MEDS: NS 1,000 ML IV SCH ×2 (05:58→16:21)
[2019-01-25 09:51] LABS: AGAP 9; BUN 9 mg/dL (8-22); CALCIUM 7.4 mg/dL (8.8-10.2); CHLORIDE 99 mmol/L (98-107); COSMO 264; CREATININE 0.6 mg/dL (0.5-0.9); ESTIMATED GFR > 60; GLUCOSE 88 mg/dL (70-104); POTASSIUM 3.6 mmol/L (3.5-5.1); SODIUM 133 mmol/L (136-145); TCO2 25 mmol/L (25-35)
[2019-01-25] MEDS: PROZAC PO SCH (10:29)
[2019-01-25] MEDS: DULERA 200 MCG/5 MCG INHALER IH SCH (11:15)
[2019-01-25] MEDS: NORCO-5 PO PRN (13:13)
--- NOTE | 2019-01-25 14:38 | Diag Imaging Result Doc PS360 ---
EXAM: CHEST-2 VIEWS INDICATION: cxr abn TECHNIQUE: 2 views COMPARISON: 01/23/2019 FINDINGS: COPD changes are again noted. Bibasilar mild interstitial thickening is unchanged, possibly chronic fibrotic changes. No new consolidation is identified. Cardiac silhouette is stable. IMPRESSION: Stable chest. Electronically signed by Dustin Quarles 01/25/2019 2:36 PM
--- NOTE | 2019-01-26 11:09 | EKG Report ---
Test Performed on : 01/23/2019 3:42:09 PM Test Reason : copd/sob Blood Pressure : / mmHG Vent. Rate : 087 BPM Atrial Rate : 087 BPM P-R Int : 156 ms QRS Dur : 082 ms QT Int : 404 ms P-R-T Axes : 087 082 061 degrees QTc Int : 486 ms Normal sinus rhythm. Nonspecific ST abnormality Abnormal ECG When compared with ECG of 18-NOV-2018 21:25, ST elevation now present in Inferior leads QT has lengthened Unconfirmed Result
[2019-01-29 09:35] VITALS: BP 113/60
--- NOTE | 2019-02-07 11:07 | HISTORY AND PHYSICAL ---
HISTORY OF PRESENT ILLNESS: This is a regular patient of [facility] in the office who has serious COPD on home neb treatments and home oxygen with a very limited ability to just walk around her place. She presented to the Emergency Room complaining of 2 days of shortness of breath with a productive cough with clear phlegm for 2 to 3 days. She quit smoking approximately 3 years ago but unfortunately has extensive COPD. She has had no history of a MD, diabetes, or thyroid disorder. The patient states that she is not short of breath all the time but only some of the time. In the E.R. she had a temperature of 98.4. Pulse was 87, respiratory rate 22, BP 113/60, and O2 saturation 96%. Labs were drawn and cardiac enzymes. Troponin was 0.057. CK was 134. Influenza A and B screens were negative. White count was 9,200, hematocrit 41.2, and platelet count 302. She had a left diff with 81.4 segs. Her sodium was 111, potassium 4.2, chloride 74, CO2 22, BUN 16, creatinine 0.5, GFR greater than 60, BUN and creatinine ratio of 32, and glucose 103. Calculated osmolality was 227. Calcium was 8.4, total bilirubin 0.3, AST 13, ALT 11, and ALK PHOS 82. Total protein was 6.5, albumin 3.1, and plasma lactate 1. In the E.R. she was started on Normal saline at 200 mL/hr, albuterol/ipratropium as needed, ceftriaxone one dose with subsequent doses ordered, and methylprednisolone 125 mg one time dose. Her chest x-ray showed just pulmonary emphysema and increased interstitial markings, slightly increased but not significantly changed from previous. EKG showed normal sinus rhythm at 87. The E.R. thought she was having a COPD exacerbation with elevated troponin, hyponatremia, and postherpetic trigeminal neuralgia and she was admitted. REVIEW OF SYSTEMS: Constitutional: She denies any fever, chills, significant night sweats. Eyes: No change in visual acuity or irritation of her eyes. Ears, Nose, and Throat: Negative. Cardiovascular: She denied any chest pain, palpitations, edema, PND, or orthopnea. Respiratory: She has had a cough with excessive sputum production. Increased shortness of breath over her baseline. Denies hemoptysis, pleurisy, or wheezing. Gastrointestinal: No nausea, vomiting, diarrhea, melena, or hematochezia. : No dysuria, hematuria, or polyuria. Musculoskeletal: She denies any arthritic problems, joint pains, or muscle aches. Skin: No lesions or rashes were appreciated. Neurological: No focal neurological deficits were obtained. Psychiatric: She denies any severe or chronic depression, otherwise negative. Endo: No diabetes or thyroid disease. Hematologic/Lymphatic: No clotting or bleeding disorders. PAST MEDICAL HISTORY: She has COPD. She quit smoking 3 years ago. She is status post hysterectomy. She has had some oral surgeries. PHYSICAL EXAMINATION: GENERAL: At the time of admission her general appearance was well with no acute distress. She had a long thorax, tripod, and breathing with some issues. HEENT: Eyes: PERRL. EOMs intact. Sclerae clear. ENT: Normal ENT inspection. NECK: Supple. Bounding carotids without thyromegaly. RESPIRATORY: Regular rate. Increased diameter. Flattened diaphragms. Diminished breath sounds throughout both lung meraz. CARDIOVASCULAR: She had normal peripheral pulses and slight tachycardia, otherwise negative. ABDOMEN: Soft. No hepatosplenomegaly. No CVA tenderness. LYMPHATICS: Negative. MUSCULOSKELETAL: Negative. SKIN: Clear. No rashes or lesions. NEUROLOGIC: Exam was symmetrical. PSYCHIATRIC: Exam was normal. She was admitted as a COPD exacerbation and she also had profound hyponatremia which had not had previously. She recently had a bout with shingles involving her forehead on the left side and has had persistent pain despite the rash having now been gone and cleared. We have been trying conventional medicines and we decided that we would try some carbamazepine like a trigeminal neuralgia type approach and in researching carbamazepine within 3 doses she was acting goofy and confused per her and the consequence was the hyponatremia probably precipitated by the carbamazepine and the carbamazepine was stopped. She had sodium given in her fluids and it was properly corrected and she was fine. cc: Jaswinder Alex MD
--- NOTE | 2019-02-07 11:28 | DISCHARGE SUMMARY ---
ADMISSION DATE: 01/23/2019 DISCHARGE DATE: 01/25/2019 HISTORY OF PRESENT ILLNESS: Admitted from the ER to the hospital after presenting to the emergency room complaining of increased work of breathing. She was treated accordingly as a COPDer. She had some microbiology. Blood cultures were negative. Laboratory: She on presentation a white count of 9200, hematocrit 41.2, platelet count 302. Subsequently, her white count improved on the next day to 6.76, hematocrit was 33.7. Chemistries: When she got in she had a sodium of 111, which is unusual for her, potassium was 4.2, chloride 74, CO2 was 22, BUN 16, creatinine 0.5, glucose 103, calcium 8.4, GFR greater than 60, BUN creatinine ratio was 32. Total bilirubin was 0.9. LFTs were normal. Proteins were negative. Lactate was 1.1. Troponin was 0.057. CK was 134. Serologies for flu were negative. She was afebrile throughout this course. She had been somewhat confused, weak, and lethargic, and I am sure it was the sodium being so low. Her vital signs were relatively stable throughout. She was not febrile. We continued her medications with particularly giving her saline. So in the ER, they placed her on Levaquin and Rocephin, albuterol and methylprednisolone, continued on some Klonopin and fluoxetine, hydrocodone p.r.n. With normal saline infusions, her numbers quickly began to improve, and on the 2nd her sodium was 121, on the 3rd it was 133, and we discharged home and will follow her up. We gave her on discharge some Levaquin to continue with her medicines and follow us up in the office. cc: Jaswinder Alex MD
== END 2019-01-25 17:59 | disposition home or self-care (01) | DRG 191 ==
LOC: P.ED 15:40 → P.MEDSURG 15:41
PROVIDERS: ADMIT Internal Medicine; ATTEND Internal Medicine
CPT/HCPCS: 71020; 71046; 80048; 80053; 82550; 83605; 83930; 84295; 84484; 85025; 87040; 87275; 87276; 87804; 93005; 94640; 94761; 96365; 96375; 99285; A9270; J0696; J2930; J7030